=== PATIENT | female | born 1995 | race Caucasian/White ===

== ENCOUNTER 2018-07-16 13:47 | Inpatient (IN) | payer MEDICAID ==
[~2018-07-16] VITALS: Ht 157.5 cm; Wt 90.7 kg
[2018-07-16] MEDS ORDERED: LR 1,000 ML IV ONE (22:29)
[2018-07-16] MEDS ORDERED: LR 500 ML IV ONE (22:29)
[2018-07-16] MEDS ORDERED: OXYTOCIN/0.9 % SODIUM CHLORIDE 1,000 ML IV SCH (22:29)
[2018-07-16] MEDS ORDERED: NALBUPHINE HCL 10 MG/ML AMP IM PRN (22:30)
[2018-07-16] MEDS ORDERED: TERBUTALINE SULFATE 1 MG/ML VIAL SUBCUT ONE (22:30)
[2018-07-16] MEDS ORDERED: DINOPROSTONE 10 MG SUPP VG ONE (22:30)
[2018-07-16 23:17] LABS: BASOPHILS # (AUTO) 0.1 K/uL (0.0-0.2); BASOPHILS % (AUTO) 0.7 % (0.0-2.0); EOSINOPHILS # (AUTO) 0.1 K/uL (0.0-0.4); EOSINOPHILS % (AUTO) 1.1 % (0.0-4.0); HEMATOCRIT 32.9 % (36-48); HEMOGLOBIN 10.5 g/dL (12.0-16.0); LYMPHOCYTES # (AUTO) 2.9 K/uL (1.0-5.5); LYMPHOCYTES % (AUTO) 38.1 % (20.5-51.5); MEAN CORPUSCULAR HEMOGLOBIN 30 pg (27-31); MEAN CORPUSCULAR HGB CONC 32 % (32-36); MEAN CORPUSCULAR VOLUME 93 fL (79.0-98.0); MONOCYTES # (AUTO) 0.5 K/uL (0.0-1.0); NEUTROPHILS # (AUTO) 4.1 K/uL (1.8-7.7); NEUTROPHILS % (AUTO) 54.1 % (40.0-70.0); PLATELET COUNT (AUTO) 234 K/uL (130-430); RED BLOOD CELL COUNT(AUTO) 3.56 MIL/uL (4.2-6.2); RED CELL DISTRIBUTION WIDTH 13.1 % (9.0-15.0); WHITE BLOOD COUNT (AUTO) 7.7 K/uL (4.8-10.8)
[2018-07-17 02:00] VITALS: BP_SYST 102
[2018-07-17] MEDS: LR 1,000 ML IV SCH ×2 (06:00→13:15)
[2018-07-17] MEDS ORDERED: fentaNYL CITRATE/PF 100 MCG/2 ML AMP ONE (06:57)
[2018-07-17] MEDS ORDERED: ROPIVACAINE 0.2% 100 ML ONE ×2 (06:58→13:21)
[2018-07-17] MEDS ORDERED: LR 500 ML IV ONE (08:03)
[2018-07-17] MEDS ORDERED: FENT2mCg/mL-ROPIVA0.2%/NS EPID 150 ML EP SCH (08:15)
[2018-07-17] MEDS ORDERED: OXYTOCIN 10 UNIT/ML VIAL ONE (16:22)
[2018-07-17] MEDS ORDERED: ANUSOL 1 EA SUPP.RECT (PREPARATION H) RC PRN (16:45)
[2018-07-17] MEDS ORDERED: HYDROCORTISONE 0.5%, 28.35 GM TOPICAL CREAM TP PRN (16:45)
[2018-07-17] MEDS ORDERED: DERMOPLAST SPRAY TP PRN (16:45)
[2018-07-17] MEDS ORDERED: WITCH HAZEL LEAF 1 MED.PAD MED.PAD TP PRN (16:45)
[2018-07-17] MEDS ORDERED: LANOLIN 7 GM OINT. TP PRN (16:45)
[2018-07-17] MEDS ORDERED: METHYLERGONOVINE MALEATE 0.2 MG TABLET PO PRN (16:45)
[2018-07-17] MEDS ORDERED: SENNOSIDES/DOCUSATE SODIUM 1 TAB TABLET(SENOKOT-S) PO PRN (16:45)
[2018-07-17] MEDS ORDERED: OXYCODONE/ACETAMINOPHEN 5-325 TABLET PO PRN (16:45)
[2018-07-17] MEDS ORDERED: OXYTOCIN 10 UNIT/ML VIAL IM ONE (16:45)
[2018-07-17] MEDS: IBUPROFEN 600 MG TABLET PO SCH (17:54)
[2018-07-17] MEDS: DOCUSATE SODIUM 100 MG CAPSULE PO PRN (20:02)
[2018-07-17] MEDS: OXYCODONE/ACETAMINOPHEN 5-325 TABLET PO PRN (20:03)
[2018-07-18] MEDS: IBUPROFEN 600 MG TABLET PO SCH ×5 (00:05→23:30)
[2018-07-18 07:10] LABS: BASOPHILS % (AUTO) 0.2 % (0.0-2.0); EOSINOPHILS # (AUTO) 0.1 K/uL (0.0-0.4); EOSINOPHILS % (AUTO) 1.1 % (0.0-4.0); HEMATOCRIT 32.8 % (36-48); HEMOGLOBIN 10.7 g/dL (12.0-16.0); LYMPHOCYTES # (AUTO) 2.5 K/uL (1.0-5.5); LYMPHOCYTES % (AUTO) 28.8 % (20.5-51.5); MEAN CORPUSCULAR HEMOGLOBIN 30 pg (27-31); MEAN CORPUSCULAR HGB CONC 33 % (32-36); MEAN CORPUSCULAR VOLUME 92 fL (79.0-98.0); MONOCYTES # (AUTO) 0.4 K/uL (0.0-1.0); MONOCYTES % (AUTO) 5.1 % (1.7-9.3); NEUTROPHILS # (AUTO) 5.7 K/uL (1.8-7.7); NEUTROPHILS % (AUTO) 64.8 % (40.0-70.0); PLATELET COUNT (AUTO) 214 K/uL (130-430); RED BLOOD CELL COUNT(AUTO) 3.56 MIL/uL (4.2-6.2); RED CELL DISTRIBUTION WIDTH 13.1 % (9.0-15.0); WHITE BLOOD COUNT (AUTO) 8.7 K/uL (4.8-10.8)
[2018-07-18] MEDS ORDERED: fentaNYL CITRATE/PF 100 MCG/2 ML AMP IVP PRN ×2 (08:00)
[2018-07-18] MEDS ORDERED: ONDANSETRON HCL 4 MG/2 ML VIAL IVP PRN (08:00)
[2018-07-18 08:30] VITALS: BP_SYST 94
[2018-07-18] MEDS ORDERED: NS IRRIG SOLN 1000 ML IR ONE (08:35)
[2018-07-18] MEDS ORDERED: KETOROLAC TROMETHAMINE 30 MG VIAL ONE (08:35)
[2018-07-18] MEDS ORDERED: MIDAZOLAM HCL 5 MG/ML VIAL (VERSED) IV ONE (08:35)
[2018-07-18] MEDS ORDERED: LR 1,000 ML IV.SOLN IV ONE (08:35)
[2018-07-18] MEDS ORDERED: fentaNYL CITRATE/PF 100 MCG/2 ML AMP ONE ×2 (08:35→09:10)
[2018-07-18] MEDS ORDERED: PROPOFOL 200MG/ 20ML VIAL (DIPRIVAN) IV ONE (08:35)
[2018-07-18] MEDS ORDERED: SEVOFLURANE 15 MIN GAS INH ONE (08:35)
[2018-07-18] MEDS: DOCUSATE SODIUM 100 MG CAPSULE PO PRN (10:34)
[2018-07-18] MEDS: OXYCODONE/ACETAMINOPHEN 5-325 TABLET PO PRN ×3 (10:34→22:15)
[2018-07-19] MEDS: IBUPROFEN 600 MG TABLET PO SCH ×2 (05:42→12:21)
[2018-07-19] MEDS: DOCUSATE SODIUM 100 MG CAPSULE PO PRN ×2 (05:43→12:21)
[2018-07-19] MEDS ORDERED: DIPH-TET-PERTUS Vaccine 0.5 ML VIAL (ADACEL) I.M. ONE (14:30)
== END 2018-07-19 15:42 | disposition home or self-care (01) | DRG 541 ==
LOC: SPU 21:35
PROVIDERS: ADMIT Obstetrics & Gynecology; ATTEND Obstetrics & Gynecology
PROC: 10E0XZZ Delivery of Products of Conception, External Approach (ICD-10-PCS; 2018-07-17)
PROC: 3E0P7VZ Introduction of Hormone into Female Reproductive, Via Natural or Artificial Opening (ICD-10-PCS; 2018-07-17)
PROC: 3E0R3BZ Introduction of Anesthetic Agent into Spinal Canal, Percutaneous Approach (ICD-10-PCS; 2018-07-17)
PROC: 00HU33Z Insertion of Infusion Device into Spinal Canal, Percutaneous Approach (ICD-10-PCS; 2018-07-17)
PROC: 0UB70ZZ Excision of Bilateral Fallopian Tubes, Open Approach (ICD-10-PCS; principal; 2018-07-18 07:30)
DX: O70.0 First degree perineal laceration during delivery (principal); Z30.2 Encounter for sterilization; Z37.0 Single live birth; Z3A.00 Weeks of gestation of pregnancy not specified
CPT/HCPCS: 36415; 81002-TC; 85018-TC; 85025; 86592; 88302; J1885; J2250; J2590; J2704; J2795; J3010; J7120